=== PATIENT | male | born 1945 | race Caucasian/White ===

== ENCOUNTER 2020-11-20 17:13 | Inpatient (IN) | payer MEDICARE, OTHER ==
[~2020-11-20] VITALS: Ht 165.1 cm; Wt 92.5 kg
[2020-11-20] MEDS ORDERED: ONDANSETRON 4 MG/2 ML VIAL IV ONE ×2 (17:45→18:30)
[2020-11-20] MEDS ORDERED: IV NORMAL SALINE 1000 ML BAG IV ONE (17:45)
[2020-11-20] MEDS ORDERED: HYDROMORPHONE 1 MG/1 ML DISP.SYRIN IV ONE ×2 (17:45→18:30)
[2020-11-20] MEDS ORDERED: HYDROMORPHONE 1 MG/1 ML DISP.SYRIN ONE ×2 (17:53→18:26)
[2020-11-20] MEDS ORDERED: ONDANSETRON 4 MG/2 ML VIAL ONE ×2 (17:53→18:27)
[2020-11-20] MEDS ORDERED: MONT10TA22 PO (17:57)
[2020-11-20] MEDS ORDERED: VITAMIN D3 (17:57)
[2020-11-20] MEDS ORDERED: CELE200C PO (17:57)
[2020-11-20] MEDS ORDERED: AMYL1CAP58 PO (17:57)
[2020-11-20] MEDS ORDERED: CAPT25TA3 PO (17:57)
[2020-11-20] MEDS ORDERED: TRINTELLIX (17:57)
[2020-11-20] MEDS ORDERED: ASPI81TA31 PO (17:57)
[2020-11-20] MEDS ORDERED: MIRA50TA PO (17:57)
[2020-11-20] MEDS ORDERED: NEBI5TAB8 PO (17:57)
[2020-11-20] MEDS ORDERED: BUDE10.2 IH (17:57)
[2020-11-20] MEDS ORDERED: NITR0.4T48 SL (17:57)
[2020-11-20] MEDS ORDERED: ESOM40CA PO (17:57)
[2020-11-20] MEDS ORDERED: TELM1TAB6 PO (17:57)
[2020-11-20] MEDS ORDERED: TIOT18CA3 IH (17:57)
[2020-11-20 18:00] LABS: BASOPHILS % (AUTO) 0.3 % (0.0-2.0); EOSINOPHILS % (AUTO) 0.3 % (0.0-7.0); HEMATOCRIT 43.9 % (36.7-47.1); HEMOGLOBIN 14.8 g/dL (12.5-16.3); LYMPHOCYTES # (AUTO) 0.9 K/uL (20.0-40.0); LYMPHOCYTES % (AUTO) 11.1 % (20.5-51.5); MEAN CORPUSCULAR HEMOGLOBIN 30.2 uug (23.8-33.4); MEAN CORPUSCULAR HGB CONC 34 g/dL (32.5-36.3); MEAN CORPUSCULAR VOLUME 89.6 fL (73.0-96.2); MONOCYTES # (AUTO) 0.3 K/uL (2.0-10.0); MONOCYTES % (AUTO) 3.4 % (0.0-11.0); NEUTROPHILS # (AUTO) 6.7 K/uL (1.8-8.9); NEUTROPHILS % (AUTO) 84.9 % (38.5-71.5); PLATELET COUNT (AUTO) 191 K/uL (152-348)
[2020-11-20 18:03] LABS: CARBON DIOXIDE 30 mmol/L (21-32); CHLORIDE 99 mmol/L (98-107); CREATININE 1.5 mg/dL (0.6-1.3); GLUCOSE 124 mg/dL (74-106); POTASSIUM 3.5 mmol/L (3.5-5.1); UREA NITROGEN, BLOOD 24 mg/dL (7-18)
[2020-11-20 18:08] LABS: ALANINE AMINOTRANSFERASE 689 U/L (16-63); ALKALINE PHOSPHATASE 204 U/L (50-136); ASPARTATE AMINOTRANSFERASE 470 U/L (15-37); BILIRUBIN,DIRECT 2.6 mg/dL (0.0-0.2); BILIRUBIN,TOTAL 7.9 mg/dL (0.2-1.0); LIPASE 148 U/L (73-393); TOTAL PROTEIN, SERUM 8.4 g/dL (6.4-8.2)
[2020-11-20] MEDS ORDERED: ACETAMINOPHEN ES 500 MG TABLET PO ONE (20:00)
[2020-11-20] MEDS ORDERED: IBUPROFEN 600 MG TABLET PO ONE (20:00)
[2020-11-20] MEDS ORDERED: ACETAMINOPHEN ES 500 MG TABLET ONE (20:16)
[2020-11-20] MEDS ORDERED: IBUPROFEN 600 MG TABLET ONE (20:16)
[2020-11-20] MEDS ORDERED: KETOROLAC TROMETHAMINE 30 MG INJ ONE (20:29)
[2020-11-20] MEDS ORDERED: KETOROLAC TROMETHAMINE 30 MG INJ IVP ONE (20:30)
[2020-11-20 21:59] LABS: *BLOOD, URINE NEGATIVE (NEGATIVE); *CLARITY,URINE CLEAR (CLEAR); *COLOR,URINE DARK YELLOW (YELLOW); *KETONES,URINE TRACE (NEGATIVE); *UROBILINOGEN,URINE >=8.0 E.U./dl (NORMAL); LEUKOCYTE ESTERASE ,URINE NEGATIVE (NEGATIVE); NITRITE, URINE NEGATIVE (NEGATIVE); UGLUCOSE NEGATIVE (NEGATIVE)
[2020-11-20 22:01] LABS: *BILIRUBIN,URIN 3+ (NEGATIVE)
[2020-11-20 22:06] LABS: BACTERIA,URINE NONE SEEN /HPF (NONE SEEN); RBC,URINE 0-3 /HPF (0-3); SQUAMOUS EPITHELIAL CELL,UR FEW /HPF (NONE SEEN); WBC,URINE 0-3 /HPF (0-3)
[2020-11-20] MEDS ORDERED: IV NORMAL SALINE 500 ML BAG IV ONE (22:15)
[2020-11-20] MEDS ORDERED: AZITHROMYCIN IV 500 MG in IV DEXTROSE 5% 250 ML IV ONE (23:00)
[2020-11-20] MEDS ORDERED: CEFTRIAXONE 1 G in IV DEXTROSE 5% 50 ML IV SCH (23:30)
[2020-11-20] MEDS ORDERED: Z GUARD REMEDY PASTE 57 GM TUBE TOP PRN (23:30)
[2020-11-20] MEDS ORDERED: MAGNESIUM HYDROXIDE 30 ML LIQUID UDC PO PRN (23:30)
[2020-11-21] MEDS: IV D5 1/2 NS 1000 ML 1,000 ML IV PRN ×2 (00:09→15:36)
[2020-11-21 00:20] VITALS: BP 103/48
[2020-11-21] MEDS ORDERED: AZITHROMYCIN 500MG/ D5W 250ML IVPB **ER PYXIS ONLY IV ONE (00:51)
[2020-11-21] MEDS ORDERED: CEFTRIAXONE 1 G VIAL ONE (00:52)
[2020-11-21 04:00] VITALS: BP 111/56
[2020-11-21 06:40] LABS: BASOPHILS % (AUTO) 0.2 % (0.0-2.0); EOSINOPHILS % (AUTO) 0.1 % (0.0-7.0); HEMATOCRIT 36.8 % (36.7-47.1); HEMOGLOBIN 12.1 g/dL (12.5-16.3); LYMPHOCYTES # (AUTO) 0.7 K/uL (20.0-40.0); LYMPHOCYTES % (AUTO) 6.6 % (20.5-51.5); MEAN CORPUSCULAR HEMOGLOBIN 29.7 uug (23.8-33.4); MEAN CORPUSCULAR HGB CONC 33 g/dL (32.5-36.3); MEAN CORPUSCULAR VOLUME 90.4 fL (73.0-96.2); MONOCYTES # (AUTO) 0.7 K/uL (2.0-10.0); MONOCYTES % (AUTO) 6.7 % (0.0-11.0); NEUTROPHILS # (AUTO) 8.9 K/uL (1.8-8.9); NEUTROPHILS % (AUTO) 86.4 % (38.5-71.5); PLATELET COUNT (AUTO) 131 K/uL (152-348); RED BLOOD CELL COUNT(AUTO) 4.07 MIL/uL (4.06-5.63); WHITE BLOOD COUNT (AUTO) 10.2 K/uL (3.6-10.2)
[2020-11-21 06:52] LABS: ALANINE AMINOTRANSFERASE 486 U/L (16-63); ALKALINE PHOSPHATASE 205 U/L (50-136); ASPARTATE AMINOTRANSFERASE 274 U/L (15-37); BILIRUBIN,DIRECT 4.4 mg/dL (0.0-0.2); BILIRUBIN,TOTAL 7.4 mg/dL (0.2-1.0); CARBON DIOXIDE 30 mmol/L (21-32); CHLORIDE 106 mmol/L (98-107); CHOLESTEROL 51 mg/dL (<200); CREATININE 2.4 mg/dL (0.6-1.3); GLUCOSE 154 mg/dL (74-106); HDL CHOLESTEROL 34 mg/dL (40-60); MAGNESIUM 1.9 mg/dL (1.8-2.4); PHOSPHOROUS 4.4 mg/dL (2.5-4.9); POTASSIUM 4.2 mmol/L (3.5-5.1); TOTAL PROTEIN, SERUM 6.5 g/dL (6.4-8.2); TRIGLYCERIDES 57 MG/DL (30-150); UREA NITROGEN, BLOOD 31 mg/dL (7-18)
[2020-11-21 07:01] LABS: THYROID STIMULATING HORMONE 2.156 mIU/mL (0.358-3.740)
[2020-11-21] MEDS: PANTOPRAZOLE SODIUM 40 MG VIAL IV SCH (08:24)
[2020-11-21 11:35] VITALS: BP 122/52
[2020-11-21 11:52] LABS: *CREATININE,URINE 232.9 mg/dL (30-125); *URINE TOTAL PROTEIN RANDOM 133.6 mg/dL (<150/24HR)
[2020-11-21 11:54] LABS: *BLOOD, URINE 2+ (NEGATIVE); *CLARITY,URINE CLEAR (CLEAR); *COLOR,URINE Orange (YELLOW); *KETONES,URINE NEGATIVE (NEGATIVE); LEUKOCYTE ESTERASE ,URINE NEGATIVE (NEGATIVE); NITRITE, URINE NEGATIVE (NEGATIVE); UGLUCOSE NEGATIVE (NEGATIVE)
[2020-11-21 11:55] LABS: *BILIRUBIN,URIN 3+ (NEGATIVE)
[2020-11-21 12:18] LABS: RBC,URINE 0-3 /HPF (0-3)
[2020-11-21 12:19] LABS: BACTERIA,URINE FEW /HPF (NONE SEEN); SQUAMOUS EPITHELIAL CELL,UR FEW /HPF (NONE SEEN)
[2020-11-21 15:30] VITALS: BP 127/61
[2020-11-21] MEDS ORDERED: HYDROMORPHONE 1 MG/1 ML DISP.SYRIN IV ONE (17:00)
[2020-11-21] MEDS: ACETAMINOPHEN 325 MG TABLET PO PRN (18:53)
[2020-11-21] MEDS: MEROPENEM 500 MG in IV NORMAL SALINE 50 ML IV SCH (19:53)
[2020-11-21] MEDS ORDERED: HYDROCODONE/APAP 5-325MG TABLET PO PRN (20:15)
[2020-11-21 20:21] VITALS: BP 128/69
[2020-11-21] MEDS: HYDROCODONE/APAP 5-325MG TABLET PO PRN (20:34)
[2020-11-21] MEDS: ONDANSETRON 4 MG/2 ML VIAL IV PRN (22:02)
[2020-11-21] MEDS ORDERED: IV NORMAL SALINE 500 ML IV ONE (22:30)
[2020-11-21] MEDS ORDERED: AZITHROMYCIN IV 500 MG in IV DEXTROSE 5% 250 ML IV SCH (23:00)
[2020-11-21] MEDS ORDERED: KETOROLAC TROMETHAMINE 15 MG INJ IVP ONE (23:15)
[2020-11-22 00:28] VITALS: BP 93/39
[2020-11-22] MEDS: HYDROCODONE/APAP 5-325MG TABLET PO PRN ×2 (02:35→08:23)
[2020-11-22 04:38] VITALS: BP 102/49
[2020-11-22] MEDS: IV D5 1/2 NS 1000 ML 1,000 ML IV PRN ×3 (06:31→20:26)
[2020-11-22 06:34] LABS: BASOPHILS % (AUTO) 0.1 % (0.0-2.0); HEMATOCRIT 34.8 % (36.7-47.1); HEMOGLOBIN 11.5 g/dL (12.5-16.3); LYMPHOCYTES # (AUTO) 0.5 K/uL (20.0-40.0); LYMPHOCYTES % (AUTO) 3.4 % (20.5-51.5); MEAN CORPUSCULAR HEMOGLOBIN 29.7 uug (23.8-33.4); MEAN CORPUSCULAR HGB CONC 33 g/dL (32.5-36.3); MEAN CORPUSCULAR VOLUME 90.1 fL (73.0-96.2); MONOCYTES # (AUTO) 0.7 K/uL (2.0-10.0); MONOCYTES % (AUTO) 4.1 % (0.0-11.0); NEUTROPHILS # (AUTO) 14.8 K/uL (1.8-8.9); NEUTROPHILS % (AUTO) 92.4 % (38.5-71.5); PLATELET COUNT (AUTO) 116 K/uL (152-348); RED BLOOD CELL COUNT(AUTO) 3.86 MIL/uL (4.06-5.63)
[2020-11-22 07:15] LABS: ALANINE AMINOTRANSFERASE 312 U/L (16-63); ALKALINE PHOSPHATASE 202 U/L (50-136); ASPARTATE AMINOTRANSFERASE 118 U/L (15-37); BILIRUBIN,TOTAL 7.7 mg/dL (0.2-1.0); CARBON DIOXIDE 28 mmol/L (21-32); CHLORIDE 106 mmol/L (98-107); GLUCOSE 158 mg/dL (74-106); MAGNESIUM 1.8 mg/dL (1.8-2.4); PHOSPHOROUS 4.3 mg/dL (2.5-4.9); POTASSIUM 3.9 mmol/L (3.5-5.1); TOTAL PROTEIN, SERUM 6.2 g/dL (6.4-8.2); UREA NITROGEN, BLOOD 33 mg/dL (7-18)
[2020-11-22 07:42] LABS: CREATINE KINASE, TOTAL 344 U/L (39-308)
[2020-11-22] MEDS: MEROPENEM 500 MG in IV NORMAL SALINE 50 ML IV SCH ×2 (08:21→20:28)
[2020-11-22] MEDS: PANTOPRAZOLE SODIUM 40 MG VIAL IV SCH (08:22)
[2020-11-22] MEDS: ONDANSETRON 4 MG/2 ML VIAL IV PRN (08:22)
[2020-11-22 11:30] VITALS: BP 112/51
[2020-11-22 16:45] VITALS: BP 123/54
[2020-11-22 19:58] VITALS: BP 134/67
[2020-11-23 00:35] VITALS: BP 128/66
[2020-11-23] MEDS: HYDROCODONE/APAP 5-325MG TABLET PO PRN ×2 (01:36→20:39)
[2020-11-23 04:52] VITALS: BP 150/82
[2020-11-23 06:27] LABS: BASOPHILS % (AUTO) 0.1 % (0.0-2.0); EOSINOPHILS % (AUTO) 0.3 % (0.0-7.0); HEMATOCRIT 35.7 % (36.7-47.1); HEMOGLOBIN 11.9 g/dL (12.5-16.3); LYMPHOCYTES # (AUTO) 0.7 K/uL (20.0-40.0); LYMPHOCYTES % (AUTO) 6.8 % (20.5-51.5); MEAN CORPUSCULAR HEMOGLOBIN 29.9 uug (23.8-33.4); MEAN CORPUSCULAR HGB CONC 33 g/dL (32.5-36.3); MEAN CORPUSCULAR VOLUME 89.5 fL (73.0-96.2); MONOCYTES # (AUTO) 0.4 K/uL (2.0-10.0); MONOCYTES % (AUTO) 3.4 % (0.0-11.0); NEUTROPHILS # (AUTO) 9.5 K/uL (1.8-8.9); NEUTROPHILS % (AUTO) 89.4 % (38.5-71.5); PLATELET COUNT (AUTO) 134 K/uL (152-348); RED BLOOD CELL COUNT(AUTO) 3.99 MIL/uL (4.06-5.63); WHITE BLOOD COUNT (AUTO) 10.6 K/uL (3.6-10.2)
[2020-11-23] MEDS: PANTOPRAZOLE SODIUM 40 MG TABLET.DR PO SCH (06:32)
[2020-11-23] MEDS: IV D5 1/2 NS 1000 ML 1,000 ML IV PRN ×2 (06:47→23:53)
[2020-11-23 06:50] LABS: ALANINE AMINOTRANSFERASE 243 U/L (16-63); ALKALINE PHOSPHATASE 233 U/L (50-136); ASPARTATE AMINOTRANSFERASE 68 U/L (15-37); BILIRUBIN,DIRECT 5.2 mg/dL (0.0-0.2); BILIRUBIN,TOTAL 6.8 mg/dL (0.2-1.0); CARBON DIOXIDE 25 mmol/L (21-32); CHLORIDE 103 mmol/L (98-107); CREATININE 2.3 mg/dL (0.6-1.3); GLUCOSE 145 mg/dL (74-106); PHOSPHOROUS 2.8 mg/dL (2.5-4.9); POTASSIUM 3.6 mmol/L (3.5-5.1); TOTAL PROTEIN, SERUM 6.6 g/dL (6.4-8.2); UREA NITROGEN, BLOOD 35 mg/dL (7-18)
[2020-11-23 08:00] VITALS: BP 165/83
[2020-11-23] MEDS: MEROPENEM 500 MG in IV NORMAL SALINE 50 ML IV SCH ×2 (08:08→20:26)
[2020-11-23] MEDS: ACETAMINOPHEN 325 MG TABLET PO PRN ×2 (08:13→18:00)
[2020-11-23] MEDS: ONDANSETRON 4 MG/2 ML VIAL IV PRN ×2 (08:14→23:56)
[2020-11-23 11:24] VITALS: BP 150/69
[2020-11-23 16:04] VITALS: BP 153/60
[2020-11-23 20:23] VITALS: BP 165/75
[2020-11-23] MEDS ORDERED: HYDROMORPHONE 1 MG/1 ML DISP.SYRIN IV ONE (23:00)
[2020-11-23] MEDS ORDERED: LISINOPRIL 5 MG TABLET PO ONE (23:15)
[2020-11-24 00:30] VITALS: BP 158/76
[2020-11-24 04:30] VITALS: BP 157/63
[2020-11-24] MEDS: ACETAMINOPHEN 325 MG TABLET PO PRN ×2 (05:23→19:41)
[2020-11-24] MEDS: PANTOPRAZOLE SODIUM 40 MG TABLET.DR PO SCH (06:16)
[2020-11-24 07:17] LABS: BASOPHILS % (AUTO) 0.1 % (0.0-2.0); HEMATOCRIT 34.7 % (36.7-47.1); HEMOGLOBIN 11.4 g/dL (12.5-16.3); LYMPHOCYTES # (AUTO) 0.7 K/uL (20.0-40.0); LYMPHOCYTES % (AUTO) 6.6 % (20.5-51.5); MEAN CORPUSCULAR HEMOGLOBIN 29.3 uug (23.8-33.4); MEAN CORPUSCULAR HGB CONC 33 g/dL (32.5-36.3); MEAN CORPUSCULAR VOLUME 89.3 fL (73.0-96.2); MONOCYTES # (AUTO) 0.5 K/uL (2.0-10.0); NEUTROPHILS % (AUTO) 88.3 % (38.5-71.5); PLATELET COUNT (AUTO) 130 K/uL (152-348); RED BLOOD CELL COUNT(AUTO) 3.89 MIL/uL (4.06-5.63); WHITE BLOOD COUNT (AUTO) 10.1 K/uL (3.6-10.2)
[2020-11-24 07:33] LABS: ALANINE AMINOTRANSFERASE 170 U/L (16-63); ALKALINE PHOSPHATASE 232 U/L (50-136); ASPARTATE AMINOTRANSFERASE 42 U/L (15-37); BILIRUBIN,DIRECT 2.9 mg/dL (0.0-0.2); BILIRUBIN,TOTAL 4.1 mg/dL (0.2-1.0); CARBON DIOXIDE 26 mmol/L (21-32); CHLORIDE 104 mmol/L (98-107); CREATININE 1.5 mg/dL (0.6-1.3); GLUCOSE 163 mg/dL (74-106); MAGNESIUM 2.3 mg/dL (1.8-2.4); PHOSPHOROUS 2.8 mg/dL (2.5-4.9); POTASSIUM 3.6 mmol/L (3.5-5.1); TOTAL PROTEIN, SERUM 6.6 g/dL (6.4-8.2); UREA NITROGEN, BLOOD 27 mg/dL (7-18)
[2020-11-24] MEDS: MEROPENEM 500 MG in IV NORMAL SALINE 50 ML IV SCH ×2 (09:16→20:39)
[2020-11-24] MEDS: IV D5 1/2 NS 1000 ML 1,000 ML IV PRN ×2 (09:48→20:40)
[2020-11-24] MEDS: HYDROCODONE/APAP 5-325MG TABLET PO PRN (09:52)
[2020-11-24 10:06] LABS: A/G RATIO 1.1 (0.7-1.7); ALBUMIN 2.8 g/dL (2.9-4.4); ALPHA-1-GLOBULIN 0.3 g/dL (0.0-0.4); ALPHA-2-GLOBULIN 0.7 g/dL (0.4-1.0); BETA GLOBULIN 0.7 g/dL (0.7-1.3); GAMMA GLOBULIN 0.9 g/dL (0.4-1.8); GLOBULIN, TOTAL 2.6 g/dL (2.2-3.9); M-SPIKE Not Observed g/dL (Not Observed)
[2020-11-24] MEDS: hydrALAZINE HCL 20 MG/1 ML VIAL IV PRN ×2 (10:45→19:49)
[2020-11-24 11:24] VITALS: BP 191/79
[2020-11-24 15:23] VITALS: BP 155/48
[2020-11-24] MEDS: ONDANSETRON 4 MG/2 ML VIAL IV PRN (19:41)
[2020-11-24 20:15] VITALS: BP 178/89
[2020-11-24] MEDS ORDERED: CEFTRIAXONE 1 G VIAL ONE (21:40)
[2020-11-24] MEDS: CEFTRIAXONE 2 G in IV DEXTROSE 5% 100 ML IV SCH (22:34)
[2020-11-25 04:35] VITALS: BP 156/57
[2020-11-25 05:32] LABS: BASOPHILS % (AUTO) 0.2 % (0.0-2.0); EOSINOPHILS % (AUTO) 0.1 % (0.0-7.0); HEMATOCRIT 35.4 % (36.7-47.1); HEMOGLOBIN 11.5 g/dL (12.5-16.3); LYMPHOCYTES # (AUTO) 0.8 K/uL (20.0-40.0); LYMPHOCYTES % (AUTO) 6.7 % (20.5-51.5); MEAN CORPUSCULAR HEMOGLOBIN 28.6 uug (23.8-33.4); MEAN CORPUSCULAR HGB CONC 33 g/dL (32.5-36.3); MEAN CORPUSCULAR VOLUME 88.1 fL (73.0-96.2); MONOCYTES # (AUTO) 0.9 K/uL (2.0-10.0); MONOCYTES % (AUTO) 7.6 % (0.0-11.0); NEUTROPHILS # (AUTO) 10.3 K/uL (1.8-8.9); NEUTROPHILS % (AUTO) 85.4 % (38.5-71.5); PLATELET COUNT (AUTO) 155 K/uL (152-348); RED BLOOD CELL COUNT(AUTO) 4.02 MIL/uL (4.06-5.63); WHITE BLOOD COUNT (AUTO) 12.1 K/uL (3.6-10.2)
[2020-11-25 05:45] LABS: ALANINE AMINOTRANSFERASE 120 U/L (16-63); ALKALINE PHOSPHATASE 202 U/L (50-136); ASPARTATE AMINOTRANSFERASE 35 U/L (15-37); BILIRUBIN,DIRECT 1.9 mg/dL (0.0-0.2); BILIRUBIN,TOTAL 2.8 mg/dL (0.2-1.0); CARBON DIOXIDE 30 mmol/L (21-32); CHLORIDE 103 mmol/L (98-107); CREATININE 1.5 mg/dL (0.6-1.3); GLUCOSE 135 mg/dL (74-106); MAGNESIUM 2.1 mg/dL (1.8-2.4); PHOSPHOROUS 2.3 mg/dL (2.5-4.9); POTASSIUM 3.2 mmol/L (3.5-5.1); TOTAL PROTEIN, SERUM 6.7 g/dL (6.4-8.2); UREA NITROGEN, BLOOD 16 mg/dL (7-18)
[2020-11-25 07:50] VITALS: BP 168/64
[2020-11-25] MEDS: ACETAMINOPHEN 325 MG TABLET PO PRN ×2 (08:37→19:08)
[2020-11-25] MEDS: hydrALAZINE HCL 20 MG/1 ML VIAL IV PRN ×2 (08:37→16:49)
[2020-11-25] MEDS: PANTOPRAZOLE SODIUM 40 MG VIAL IV SCH (08:37)
[2020-11-25] MEDS: IV D5 1/2 NS 1000 ML 1,000 ML IV PRN (08:57)
[2020-11-25] MEDS ORDERED: POTASSIUM CHLORIDE 50 ML IV SCH (09:15)
[2020-11-25] MEDS ORDERED: CLONIDINE-TTS 1 PATCH TD SCH (11:00)
[2020-11-25 11:30] VITALS: BP 115/58
[2020-11-25] MEDS: POTASSIUM PHOSPHATE MM 7.5 MMOL in IV NORMAL SALINE 97.5 ML IV SCH ×2 (12:42→16:48)
[2020-11-25] MEDS: METRONIDAZOLE 500 MG/NS 100ML 500 MG in PREMIXED 1 EACH IV SCH ×2 (14:05→21:15)
[2020-11-25] MEDS ORDERED: MIRA25TA PO (15:10)
[2020-11-25] MEDS ORDERED: ROSU20TA2 PO (15:14)
[2020-11-25] MEDS ORDERED: NEBI10TA2 PO (15:14)
[2020-11-25] MEDS ORDERED: LORA0.5T48 PO (15:14)
[2020-11-25] MEDS ORDERED: CHOL2000 PO (15:14)
[2020-11-25] MEDS ORDERED: VORT10TA PO (15:14)
[2020-11-25] MEDS ORDERED: ROSU10TA2 PO (15:14)
[2020-11-25] MEDS ORDERED: ALBU8.5H8 IH (15:15)
[2020-11-25] MEDS ORDERED: FURO-152 PO (15:15)
[2020-11-25] MEDS ORDERED: SEMA7TAB PO (15:17)
[2020-11-25] MEDS ORDERED: LINA72CA PO (15:17)
[2020-11-25] MEDS ORDERED: ROFL500T PO (15:17)
[2020-11-25] MEDS ORDERED: CLOP75TA15 PO (15:17)
[2020-11-25] MEDS ORDERED: DONE5TAB7 PO (15:17)
[2020-11-25] MEDS ORDERED: TELM1TAB16 PO (15:19)
[2020-11-25] MEDS ORDERED: FLUT16SP16 NS (15:20)
[2020-11-25 15:21] VITALS: BP 178/73
[2020-11-25 20:00] VITALS: BP 149/53
[2020-11-25] MEDS: CEFTRIAXONE 2 G in IV DEXTROSE 5% 100 ML IV SCH (21:14)
[2020-11-26] MEDS: IV D5 1/2 NS 1000 ML 1,000 ML IV PRN ×2 (03:15→12:30)
[2020-11-26 04:52] VITALS: BP 124/52
[2020-11-26] MEDS: METRONIDAZOLE 500 MG/NS 100ML 500 MG in PREMIXED 1 EACH IV SCH ×3 (05:36→21:21)
[2020-11-26 06:39] LABS: BASOPHILS % (AUTO) 0.3 % (0.0-2.0); EOSINOPHILS % (AUTO) 0.4 % (0.0-7.0); HEMATOCRIT 35.6 % (36.7-47.1); HEMOGLOBIN 11.6 g/dL (12.5-16.3); LYMPHOCYTES # (AUTO) 0.9 K/uL (20.0-40.0); LYMPHOCYTES % (AUTO) 8.2 % (20.5-51.5); MEAN CORPUSCULAR HEMOGLOBIN 28.8 uug (23.8-33.4); MEAN CORPUSCULAR HGB CONC 33 g/dL (32.5-36.3); MEAN CORPUSCULAR VOLUME 88.7 fL (73.0-96.2); MONOCYTES % (AUTO) 9.3 % (0.0-11.0); NEUTROPHILS # (AUTO) 8.6 K/uL (1.8-8.9); NEUTROPHILS % (AUTO) 81.8 % (38.5-71.5); PLATELET COUNT (AUTO) 177 K/uL (152-348); RED BLOOD CELL COUNT(AUTO) 4.02 MIL/uL (4.06-5.63); WHITE BLOOD COUNT (AUTO) 10.5 K/uL (3.6-10.2)
[2020-11-26 07:00] LABS: BILIRUBIN,TOTAL 2.5 mg/dL (0.2-1.0); CREATININE 1.2 mg/dL (0.6-1.3); PHOSPHOROUS 2.7 mg/dL (2.5-4.9); POTASSIUM 2.9 mmol/L (3.5-5.1); TOTAL PROTEIN, SERUM 6.4 g/dL (6.4-8.2)
[2020-11-26] MEDS: PANTOPRAZOLE SODIUM 40 MG VIAL IV SCH (09:25)
[2020-11-26] MEDS ORDERED: PROPOFOL 200 MG/20 ML BOTTLE IV ONE (11:30)
[2020-11-26] MEDS ORDERED: ETOMIDATE 20 MG/10 ML VIAL MC ONE (11:30)
[2020-11-26 12:01] VITALS: BP 159/58
[2020-11-26] MEDS ORDERED: POTASSIUM CHLORIDE 20 MEQ POWDER PACKET PO ONE ×2 (14:00→17:00)
[2020-11-26] MEDS: hydrALAZINE HCL 20 MG/1 ML VIAL IV PRN (15:16)
[2020-11-26] MEDS ORDERED: ACETAMINOPHEN 325 MG TABLET PO PRN (15:30)
[2020-11-26] MEDS ORDERED: POTASSIUM CHLORIDE 20 MEQ in IV D5 1/2 NS 1000 ML 1,000 ML IV PRN (15:45)
[2020-11-26 16:00] VITALS: BP 163/75
[2020-11-26] MEDS: FUROSEMIDE 20 MG/2 ML VIAL IV SCH (16:06)
[2020-11-26] MEDS ORDERED: IOHEXOL 300MG/ML 50 ML VIAL ONE (16:44)
[2020-11-26] MEDS: IPRATROPIUM BROMIDE 0.5 MG/2.5 ML NEBU NEB PRN (19:31)
[2020-11-26] MEDS: ALBUTEROL SULFATE 2.5 MG/ 0.5 ML NEBU NEB PRN (19:32)
[2020-11-26] MEDS ORDERED: IPRATROPIUM BROMIDE 0.5 MG/2.5 ML NEBU ONE (19:34)
[2020-11-26] MEDS ORDERED: ALBUTEROL SULFATE 2.5 MG/3 ML NEBU ONE (19:34)
[2020-11-26 20:20] VITALS: BP 145/69
[2020-11-26] MEDS: CEFTRIAXONE 2 G in IV DEXTROSE 5% 100 ML IV SCH (22:09)
[2020-11-27] MEDS: ALBUTEROL SULFATE 2.5 MG/ 0.5 ML NEBU NEB PRN (02:23)
[2020-11-27] MEDS: IPRATROPIUM BROMIDE 0.5 MG/2.5 ML NEBU NEB PRN (02:23)
[2020-11-27 04:20] VITALS: BP 137/51
[2020-11-27] MEDS: ACETAMINOPHEN 325 MG TABLET PO PRN (05:12)
[2020-11-27] MEDS: METRONIDAZOLE 500 MG/NS 100ML 500 MG in PREMIXED 1 EACH IV SCH ×3 (05:12→22:36)
[2020-11-27 06:59] LABS: CREATININE 1.3 mg/dL (0.6-1.3)
[2020-11-27] MEDS: PANTOPRAZOLE SODIUM 40 MG VIAL IV SCH (08:56)
[2020-11-27] MEDS: FUROSEMIDE 20 MG/2 ML VIAL IV SCH (08:56)
[2020-11-27 09:44] LABS: BILIRUBIN,DIRECT 1.2 mg/dL (0.0-0.2); TOTAL PROTEIN, SERUM 6.2 g/dL (6.4-8.2)
[2020-11-27] MEDS ORDERED: POTASSIUM CHLORIDE 20 MEQ POWDER PACKET GT ONE ×2 (11:00→14:00)
[2020-11-27 11:42] VITALS: BP 136/57
[2020-11-27] MEDS: HYDROCODONE/APAP 5-325MG TABLET PO PRN (15:11)
[2020-11-27 15:18] VITALS: BP 126/51
[2020-11-27 20:15] VITALS: BP 136/64
[2020-11-27] MEDS: CEFTRIAXONE 2 G in IV DEXTROSE 5% 100 ML IV SCH (21:32)
[2020-11-28 04:10] VITALS: BP 134/63
[2020-11-28] MEDS: METRONIDAZOLE 500 MG/NS 100ML 500 MG in PREMIXED 1 EACH IV SCH (05:42)
[2020-11-28] MEDS: PANTOPRAZOLE SODIUM 40 MG TABLET.DR PO SCH (06:44)
[2020-11-28 06:47] LABS: BASOPHILS % (AUTO) 0.4 % (0.0-2.0); EOSINOPHILS # (AUTO) 0.2 K/uL (0.0-0.7); EOSINOPHILS % (AUTO) 1.6 % (0.0-7.0); HEMATOCRIT 32.9 % (36.7-47.1); HEMOGLOBIN 10.8 g/dL (12.5-16.3); LYMPHOCYTES # (AUTO) 0.9 K/uL (20.0-40.0); LYMPHOCYTES % (AUTO) 8.9 % (20.5-51.5); MEAN CORPUSCULAR HEMOGLOBIN 29.4 uug (23.8-33.4); MEAN CORPUSCULAR HGB CONC 33 g/dL (32.5-36.3); MEAN CORPUSCULAR VOLUME 89.3 fL (73.0-96.2); MONOCYTES # (AUTO) 0.9 K/uL (2.0-10.0); MONOCYTES % (AUTO) 8.4 % (0.0-11.0); NEUTROPHILS # (AUTO) 8.6 K/uL (1.8-8.9); NEUTROPHILS % (AUTO) 80.7 % (38.5-71.5); PLATELET COUNT (AUTO) 249 K/uL (152-348); RED BLOOD CELL COUNT(AUTO) 3.68 MIL/uL (4.06-5.63); WHITE BLOOD COUNT (AUTO) 10.6 K/uL (3.6-10.2)
[2020-11-28 07:00] LABS: BILIRUBIN,TOTAL 1.8 mg/dL (0.2-1.0); CREATININE 1.3 mg/dL (0.6-1.3); MAGNESIUM 1.7 mg/dL (1.8-2.4); PHOSPHOROUS 3.3 mg/dL (2.5-4.9); POTASSIUM 3.2 mmol/L (3.5-5.1); TOTAL PROTEIN, SERUM 6.2 g/dL (6.4-8.2)
[2020-11-28 08:16] VITALS: BP 151/64
[2020-11-28] MEDS ORDERED: MAGNESIUM SULFATE/D5W 100 ML IV SCH (08:30)
[2020-11-28] MEDS: POTASSIUM CHLORIDE 50 ML IV SCH ×4 (08:56→12:29)
[2020-11-28] MEDS: FUROSEMIDE 20 MG/2 ML VIAL IV SCH (08:56)
[2020-11-28] MEDS: HYDROCODONE/APAP 5-325MG TABLET PO PRN (10:42)
[2020-11-28] MEDS: METRONIDAZOLE 500 MG TABLET PO SCH ×2 (13:34→21:00)
[2020-11-28 15:51] VITALS: BP 120/54
[2020-11-28 20:23] VITALS: BP 123/45
[2020-11-28] MEDS: CEFTRIAXONE 2 G in IV DEXTROSE 5% 100 ML IV SCH (21:00)
[2020-11-29 04:00] VITALS: BP 127/50
[2020-11-29] MEDS: METRONIDAZOLE 500 MG TABLET PO SCH (05:24)
[2020-11-29] MEDS: PANTOPRAZOLE SODIUM 40 MG TABLET.DR PO SCH (06:06)
[2020-11-29] MEDS ORDERED: IV NS 1000 ML 1,000 ML IV PRN (06:30)
[2020-11-29 08:00] VITALS: BP 135/57
[2020-11-29] MEDS: FUROSEMIDE 20 MG/2 ML VIAL IV SCH (08:42)
[2020-11-29 15:31] VITALS: BP 145/65
[2020-11-29] MEDS ORDERED: CEPH500C2 PO (17:19)
[2020-11-29] MEDS ORDERED: LIDOCAINE-MPF 2% 5 ML VIAL IJ ONE (18:14)
[2020-11-29] MEDS ORDERED: PROPOFOL 200 MG/20 ML BOTTLE IV ONE (18:14)
== END 2020-11-29 18:15 | disposition home or self-care (01) | DRG 871 ==
LOC: ER 17:13 → TELE3 23:37 → MEDSURG3 11-23 12:19
PROVIDERS: ADMIT Student in an Organized Health Care Education/Training Program; ATTEND Internal Medicine
PROC: 0FC98ZZ Extirpation of Matter from Common Bile Duct, Via Natural or Artificial Opening Endoscopic (ICD-10-PCS; principal; 2020-11-25)
PROC: 0F7D8DZ Dilation of Pancreatic Duct with Intraluminal Device, Via Natural or Artificial Opening Endoscopic (ICD-10-PCS; 2020-11-25)
PROC: 0F798DZ Dilation of Common Bile Duct with Intraluminal Device, Via Natural or Artificial Opening Endoscopic (ICD-10-PCS; 2020-11-25)
PROC: 0DJ08ZZ Inspection of Upper Intestinal Tract, Via Natural or Artificial Opening Endoscopic (ICD-10-PCS; 2020-11-28)
DX: A41.51 Sepsis due to Escherichia coli [E. coli] (principal); N17.0 Acute kidney failure with tubular necrosis; J18.9 Pneumonia, unspecified organism; D68.59 Other primary thrombophilia; N39.0 Urinary tract infection, site not specified; K80.32 Calculus of bile duct with acute cholangitis without obstruction; J98.11 Atelectasis; K80.70 Calculus of gallbladder and bile duct without cholecystitis without obstruction; D64.9 Anemia, unspecified; E87.6 Hypokalemia; F32.9 Major depressive disorder, single episode, unspecified; E78.5 Hyperlipidemia, unspecified; I48.0 Paroxysmal atrial fibrillation; M19.90 Unspecified osteoarthritis, unspecified site; Z87.11 Personal history of peptic ulcer disease; Z20.822 Contact with and (suspected) exposure to COVID-19; R74.01 Elevation of levels of liver transaminase levels; E66.01 Morbid (severe) obesity due to excess calories; Z68.34 Body mass index [BMI] 34.0-34.9, adult; F39 Unspecified mood [affective] disorder; J44.9 Chronic obstructive pulmonary disease, unspecified; K42.9 Umbilical hernia without obstruction or gangrene; K64.9 Unspecified hemorrhoids; I25.10 Atherosclerotic heart disease of native coronary artery without angina pectoris; Z74.09 Other reduced mobility; K29.70 Gastritis, unspecified, without bleeding; D29.1 Benign neoplasm of prostate; G31.84 Mild cognitive impairment of uncertain or unknown etiology; I11.0 Hypertensive heart disease with heart failure; I50.9 Heart failure, unspecified; Z90.79 Acquired absence of other genital organ(s); K57.30 Diverticulosis of large intestine without perforation or abscess without bleeding; Z87.19 Personal history of other diseases of the digestive system
CPT/HCPCS: 36415; 43264; 70030-TC; 71045; 74018; 74181; 76700; 83605; 83690; 83735; 83970; 84100; 84132; 84155; 84156; 84165; 84300; 84443; 85025; 85730; 87040; 87077; 87086; 93005; 93307; 94640; 94664; A4217; A4663; A9150; C1758; C1769; C1889; C2625; C9113; G0378; J0360; J0456; J0696; J1170; J1885; J1940; J2185; J2405; J3475; J3480; J3490; J3590; J7030; J7040; J7050; J7060; Q9967